=== PATIENT | male | born 1970 | race Caucasian/White ===

== ENCOUNTER 2021-04-03 04:00 | Outpatient (CLI) | payer MEDICAID, SELFPAY ==
[2021-04-03 08:24] LABS: Anion Gap 6.3 mmol/L (3-11); BUN 24 mg/dL (7-18); CO2 30.7 mmol/L (21.0-32.0); Calcium 8.7 mg/dL (8.5-10.1); Calculated LDL 142 mg/dL (<100); Chloride 104 mmol/L (98-107); Cholesterol 215 mg/dL (<200); Glucose 104 mg/dL (74-106); HDL Cholesterol 39 mg/dL (40-60); Potassium 4.7 mmol/L (3.5-5.1); Sodium 141 mmol/L (136-145); Triglyceride 171 mg/dL (<150)
[2021-04-03 18:56] LABS: PSA, Screening 0.3 ng/mL (0.0-2.5)
== END 2021-04-03 04:01 | disposition home or self-care (01) ==
LOC: LBO 04:00
PROVIDERS: PCP Family Medicine; Visit Provider Family Medicine
DX: Z12.5 Encounter for screening for malignant neoplasm of prostate (principal); Z13.6 Encounter for screening for cardiovascular disorders; Z80.42 Family history of malignant neoplasm of prostate
CPT/HCPCS: 36415; 80048; 80061; 84153

== ENCOUNTER → 2021-11-06 02:25 | Outpatient (CLI) | payer MEDICAID, SELFPAY ==
--- NOTE | 2021-11-06 07:00 | DI.RAD_ITS ---
Exam(s) XR KNEE LT 3V AP,LAT,CHARAN EXAM: XR KNEE LT 3V AP,LAT,CHARAN CLINICAL HISTORY: left knee pain x 5 months; ? meniscus TEAR, M25.562. TECHNIQUE: 2D digital imaging was performed. COMPARISON: No exams were available for comparison FINDINGS: 3 views No evidence of acute fracture. Small joint effusion noted. Calcification noted at the insertional a spect of the quadriceps on the anterosuperior patella and mild prepatellar swelling is noted. No pat ellar fracture evident. There are minimal degenerative changes. 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 Bone density normal. No sig nificant osseous lesions evident. IMPRESSION: DATA REPOSITORY: RADIATION DOSE DELIVERED:
== END ==
PROVIDERS: Visit Provider Family Medicine
DX: M25.562 Pain in left knee (principal); M25.462 Effusion, left knee; M25.862 Other specified joint disorders, left knee
CPT/HCPCS: 73562

== ENCOUNTER → 2022-01-17 01:58 | Outpatient (CLI) | payer MEDICAID, SELFPAY ==
--- NOTE | 2022-01-17 | DI.MRI_ITS ---
Exam(s) MR LOWER JOINT LT WO EXAM: MR LOWER JOINT LT WO CLINICAL HISTORY: LEFT KNEE PAIN M25.569 R/O MENISCAL TEAR. TECHNIQUE: Multiplanar multisequence MRI was performed. COMPARISON: CR XR KNEE LT 3V AP,LAT,CHARAN from 11/06/2021 FINDINGS: BONES: There is no fracture or contusion pattern. JOINTS: Articular cartilage is unremarkable. No effusion is present. TENDONS: Extensor mechanism: Unremarkable. Medial retinaculum: Unremarkable. Lateral retinaculum: Unremarkable. Popliteus: Unremarkable. MUSCLES: Unremarkable. MENISCI: There is a tear of the posterior horn of the medial meniscus. The lateral meniscus is unrem arkable. SOFT TISSUES: Unremarkable. LIGAMENTS: Anterior Cruciate: Unremarkable. Posterior Cruciate: Unremarkable. Medial Collateral:Unremarkable. Lateral Collateral: Unremarkable. OTHER: IMPRESSION: There is a tear of the posterior horn of the medial meniscus. DATA REPOSITORY:
== END ==
PROVIDERS: PCP Nurse Practitioner Family; Visit Provider Orthopaedic Surgery
DX: M25.562 Pain in left knee (principal); S83.242A Other tear of medial meniscus, current injury, left knee, initial encounter; X58.XXXA Exposure to other specified factors, initial encounter
CPT/HCPCS: 73721

== ENCOUNTER 2022-04-02 20:49 | Outpatient (REF) | payer MEDICAID, SELFPAY ==
[2022-04-02 21:31] LABS: Bilirubin Negative (Negative); Blood Trace-intact (Negative); Clarity Clear (Clear); Glucose Negative (Negative); Ketones Negative (Negative); Leukocyte Esterase Negative (Negative); Nitrite Negative (Negative); Urobilinogen 0.2 EU/dL (Up TO 0.2); pH 7.5 (5-8)
[2022-04-02 21:37] LABS: COMMENT (LAB VIEW ONLY) 117.86 mg/dL; Microalb ug/mg Crea 13.6 ug/mg Cr
[2022-04-02 21:46] LABS: Bacteria Negative HPF (Negative); C & S Indicated? No; Casts Negative LPF (Negative); Crystals Negative HPF (Negative); Epithelial Cells Few HPF (Negative); Mucus Negative (Negative); Other Cells Negative (Negative); RBC 0-2 HPF (0-2); WBC 0-2 HPF (0-5)
== END 2022-04-02 20:50 | disposition home or self-care (01) ==
LOC: LBN 20:49
PROVIDERS: PCP Nurse Practitioner Family; Visit Provider Nurse Practitioner Family
DX: N39.0 Urinary tract infection, site not specified (principal); R03.0 Elevated blood-pressure reading, without diagnosis of hypertension
CPT/HCPCS: 81003; 81015; 82043; 82570

== ENCOUNTER 2022-04-20 01:55 | Outpatient (CLI) | payer MEDICAID, SELFPAY ==
[2022-04-20 08:31] LABS: ALT 37 U/L (16-63); AST 24 U/L (15-37); Albumin 3.7 g/dL (3.4-5.0); Alkaline Phosphatase 94 U/L (46-116); Anion Gap 5.6 mmol/L (3-11); BUN 22 mg/dL (7-18); Bilirubin, Total 0.4 mg/dL (0.2-1.0); CO2 31.4 mmol/L (21.0-32.0); CREATININE 1.2 mg/dL (0.70-1.30); Calcium 9.1 mg/dL (8.5-10.1); Chloride 104 mmol/L (98-107); Estimated GFR 73.67 (mL/min/1.73m2); Glucose 112 mg/dL (74-106); Potassium 4.2 mmol/L (3.5-5.1); Sodium 141 mmol/L (136-145); Total Protein 7.1 g/dL (6.4-8.2)
[2022-04-23 11:05] LABS: PSA, Screening 0.2 ng/mL (<=3.5)
== END 2022-04-20 01:56 | disposition home or self-care (01) ==
PROVIDERS: PCP Nurse Practitioner Family; Visit Provider Nurse Practitioner Family
DX: R03.0 Elevated blood-pressure reading, without diagnosis of hypertension (principal); Z80.42 Family history of malignant neoplasm of prostate; R73.9 Hyperglycemia, unspecified; Z12.5 Encounter for screening for malignant neoplasm of prostate
CPT/HCPCS: 36415; 80053; 84153

== ENCOUNTER 2022-05-02 02:10 | Outpatient (CLI) | payer MEDICAID, SELFPAY ==
--- NOTE | 2022-05-02 06:30 | DI.US_ITS ---
Exam(s) US RENAL EXAM: US RENAL CLINICAL HISTORY: family h/o prostate ca,nocturia,r35.1. TECHNIQUE: Friedman scale, color and spectral Doppler were used. COMPARISON: No exams were available for comparison FINDINGS: Renal size in cm: Right: 10.5 left: 10.5 Echogenicity: Normal Hydronephrosis: No Cyst or mass: 8.9 centimeters simple cyst upper pole right kidney Nephrolithiasis: No Bladder:Normal . Both ureteral jets were visualized. Prevoid vol:285 Postvoid vol:0 Prostate volume 34 cc. IMPRESSION: 8.9 centimeter simple cyst upper pole right kidney. No evidence of hydronephrosis. Bladder and pros farley appear normal. DATA REPOSITORY:
== END 2022-05-02 02:30 ==
LOC: DI 02:10
PROVIDERS: PCP Nurse Practitioner Family; Visit Provider Nurse Practitioner Family
DX: R35.1 Nocturia (principal); Z80.42 Family history of malignant neoplasm of prostate; N28.1 Cyst of kidney, acquired
CPT/HCPCS: 76770

== ENCOUNTER 2023-04-11 12:30 | Outpatient (CLI) | payer MEDICAID, SELFPAY ==
[2023-04-11 12:10] LABS: ALT 37 U/L (16-63); AST 20 U/L (15-37); Alkaline Phosphatase 93 U/L (46-116); Anion Gap 7.5 mmol/L (3-11); BUN 22 mg/dL (7-18); Bilirubin, Total 0.3 mg/dL (0.2-1.0); CO2 31.5 mmol/L (21.0-32.0); Calcium 9.6 mg/dL (8.5-10.1); Calculated LDL 158 mg/dL (<100); Chloride 104 mmol/L (98-107); Cholesterol 229 mg/dL (<200); Estimated GFR 91.69 (mL/min/1.73m2); Glucose 99 mg/dL (74-106); HDL Cholesterol 44 mg/dL (40-60); Potassium 4.2 mmol/L (3.5-5.1); Sodium 143 mmol/L (136-145); Total Protein 7.9 g/dL (6.4-8.2); Triglyceride 138 mg/dL (<150)
[2023-04-11 12:50] LABS: COMMENT (LAB VIEW ONLY) 149.53 mg/dL; Microalb ug/mg Crea 12.4 ug/mg Cr
[2023-04-11 18:45] LABS: PSA, Diagnostic 0.3 ng/mL (<=3.5)
[2023-04-11 19:27] LABS: HIV-1/2 Ag & Ab Screen Negative (Negative)
[2023-04-11 19:30] LABS: Hepatitis C Ab w Rflx HCV PCR Negative (Negative)
== END 2023-04-11 12:31 | disposition home or self-care (01) ==
LOC: LBO 12:30
PROVIDERS: Physician Assistant; PCP Nurse Practitioner Family; Visit Provider Nurse Practitioner Family
DX: Z11.59 Encounter for screening for other viral diseases; Z11.4 Encounter for screening for human immunodeficiency virus [HIV]; I10 Essential (primary) hypertension; E11.9 Type 2 diabetes mellitus without complications
CPT/HCPCS: 36415; 80053; 80061; 84153; 86803; 87389; 82043; 82570

== ENCOUNTER 2025-02-12 00:42 | Outpatient (CLI) | payer MEDICAID, SELFPAY ==
[2025-02-12 17:35] LABS: PSA, Screening 0.4 ng/mL (<=3.5)
== END 2025-02-12 00:43 | disposition home or self-care (01) ==
PROVIDERS: PCP Nurse Practitioner Family; Visit Provider Physician Assistant
DX: Z12.5 Encounter for screening for malignant neoplasm of prostate (principal)
CPT/HCPCS: 36415; 84153